=== PATIENT | male | born 1975 | race Caucasian/White ===

== ENCOUNTER 2016-09-15 13:27 | Emergency (ER) | payer OTHER ==
[~2016-09-15] VITALS: Ht 167.6 cm; Wt 82.0 kg
[2016-09-15 13:32] VITALS: Ht 167.6 cm; Wt 82.0 kg
[2016-09-15] MEDS ORDERED: SOD CHLORIDE 0.9% 1,000 ML IV STA (14:03)
[2016-09-15] MEDS ORDERED: ONDANSETRON 4 MG INJ IV STA (14:03)
[2016-09-15] MEDS ORDERED: DICYCLOMINE 10 MG CAP PO ONE (14:30)
[2016-09-15 14:49] LABS: ADD SCAN DIFF NO
--- NOTE | 2016-09-15 14:51 | RADRPT ---
PROCEDURE: US Abdomen. CLINICAL INDICATION: abdominal pain TECHNIQUE: Multiple real-time images were acquired of the patient's abdomen utilizing a high reso lution transducer. COMPARISON: None FINDINGS: The liver demonstrates normal echogenicity and size and no focal lesions are seen. No gallstones ar e identified within the gallbladder. There is no pericholecystic fluid or gallbladder wall thickeni ng. No intra or extrahepatic biliary dilatation is seen. The common bile duct measures 4 mm in max imal dimension. The pancreas is obscured. No free fluid is identified. The right kidney measures 11 cm without hydronephrosis. Visualized portion of the aorta and IVC are unremarkable. IMPRESSION: Unremarkable abdominal ultrasound. RPTAT: AA .Black Perrin MD, Date Time Electronically viewed and signed by .Black Perrin MD, MD on 09/15/2016 14:51 .Petrona/
[2016-09-15 14:53] LABS: ADD UMIC YES; URINE BILIRUBIN (Dip) NEGATIVE (NEGATIVE); URINE BLOOD (Dip) TRACE (NEGATIVE); URINE COLOR YELLOW (YELLOW); URINE GLUCOSE (Dip) NEGATIVE (NEGATIVE); URINE KETONES (Dip) NEGATIVE (NEGATIVE); URINE LEUKOCYTE ESTERASE (Dip) NEGATIVE (NEGATIVE); URINE NITRITE (Dip) NEGATIVE (NEGATIVE); URINE TOTAL PROTEIN (Dip) NEGATIVE (NEGATIVE); URINE UROBILINOGEN (Dip) 0.2 E.U./dL (0.1-1.0)
[2016-09-15 15:08] LABS: HEMATOCRIT 42.9 % (42.0-52.0); HEMOGLOBIN 14.3 g/dl (14.0-18.0); MEAN CORPUSCULAR HEMOGLOBIN 28.4 pg (29.0-33.0); MEAN CORPUSCULAR HGB CONC 33.3 g/dl (32.0-37.0); MEAN CORPUSCULAR VOLUME 85.3 fl (82.0-101.0); MEAN PLATELET VOLUME 11.3 fl (7.4-10.4); PLATELET COUNT 153 10^3/UL (140-415); RED BLOOD COUNT 5.03 10^6/ul (4.70-6.10); RED CELL DISTRIBUTION WIDTH 13.1 % (11.5-14.5); WHITE BLOOD COUNT 3.7 10^3/ul (4.8-10.8)
[2016-09-15 15:38] LABS: ALBUMIN 4.2 g/dl (3.3-4.9)
[2016-09-15 15:39] LABS: POTASSIUM 3.6 mmol/L (3.5-5.1)
[2016-09-15 15:41] LABS: ALBUMIN/GLOBULIN RATIO 1.31; BILIRUBIN,INDIRECT 0.8 mg/dl (0-1.1); BILIRUBIN,TOTAL 0.8 mg/dl (0.2-1.3); CREATININE 0.88 mg/dl (0.61-1.24); TOTAL PROTEIN 7.4 g/dl (6.1-8.1)
[2016-09-15 15:42] LABS: CALCIUM 10.8 mg/dl (8.4-10.2)
[2016-09-15 15:49] LABS: BACTERIA,URINE FEW; MUCUS,URINE FEW; URINE RBCS 0-2 /HPF (0)
[2016-09-15 16:04] LABS: EOSINOPHILS # 0.1 10^3/ul (0.0-0.5); LYMPHOCYTES # 1.1 10^3/ul (0.8-2.9); MONOCYTE # 0.6 10^3/ul (0.3-0.9); NEUTROPHIL # 1.6 10^3/ul (1.6-7.5)
[2016-09-15] MEDS ORDERED: ACET500C5 PO (17:04)
--- NOTE | 2016-09-15 17:20 | ERD ---
ER Documentation Chief Complaint Date/Time DATE: 09/15/16 TIME: 17:16 Chief Complaint diarrhea for past 4 days, my son and had same symptoms went away HPI 41-year-old male patient with no significant past medical history presents to the ED complaining of 9-10 episodes of nonmucoid not on bloody diarrhea that started 5 days ago. Reports that her son and also has similar symptoms however it resolved in 1 day. States that he has focal right upper quadrant abdominal pain that is constant without the diarrhea. Describes the pain as aching and rates it a 4 out of 10. States that he is concerned about his liver and kidneys. Denies any chest pain, cough, fever, chills, nausea, vomiting. ROS All systems reviewed and are negative except as per history of present illness. Medications Home Meds Active Scripts Acetaminophen* (Tylophen*) 500 Mg Capsule, 1 CAP PO Q6H Y for PAIN AND OR ELEVATED TEMP, #20 CAP Prov:PITER MOORE PA-C 09/15/16 Allergies Allergies: Coded Allergies: No Known Allergy (Unverified , 09/15/16) PMhx/Soc Hx Alcohol Use: No Hx Substance Use: No Hx Tobacco Use: No Smoking Status: Never smoker Physical Exam Vitals Vital Signs Date Time Temp Pulse Resp B/P Pulse Ox O2 Delivery O2 Flow Rate FiO2 09/15/16 13:32 97.9 72 18 137/91 97 Physical Exam Const: [id number], well-nourished. In no acute distress. Head: Atraumatic, normocephalic Eyes: Normal Conjunctiva without injection. No purulent discharge. ENT: Normal external ear, nose. Moist oropharynx without tonsillar exudates. Non -erythematous pharynx. Uvula midline. No drooling. No trismus. Neck: No cervical midline tenderness. Full range of motion. No meningismus. No cervical lymphadenopathy. No JVD. Resp: Clear to auscultation bilaterally. No wheezing, rhonchi, rales, or crackles. No accessory muscle use. No retractions. Cardio: Regular rate and rhythm. No murmurs, rubs or gallops. Abd: Soft, right upper quadrant tenderness, non distended. Normal bowel sounds. No palpable masses. No rebound tenderness. No guarding. Negative McBurney' s point. Negative psoas sign. Negative obturator sign. Skin: No petechiae or rashes Back: No midline tenderness. No CVA tenderness. Ext: No cyanosis, or edema. Neur: Awake and alert. Normal gait. Normal coordination. Psych: Normal Mood and Affect Result Diagram: 09/15/16 1410 09/15/16 1410 Results 24 hrs Laboratory Tests Test 09/15/16 14:10 White Blood Count 3.710^3/ul Red Blood Count 5.0310^6/ul Hemoglobin 14.3g/dl Hematocrit 42.9% Mean Corpuscular Volume 85.3fl Mean Corpuscular Hemoglobin 28.4pg Mean Corpuscular Hemoglobin Concent 33.3g/dl Red Cell Distribution Width 13.1% Platelet Count 90737^3/UL Mean Platelet Volume 11.3fl Neutrophils % 44.0% Band Neutrophils % 4.0% Lymphocytes % 30.0% Reactive Lymphocytes % 2.0% Monocytes % 16.0% Eosinophils % 4.0% Neutrophils # 1.610^3/ul Lymphocytes # 1.110^3/ul Monocytes # 0.610^3/ul Eosinophils # 0.110^3/ul Urine Color YELLOW Urine Clarity CLEAR Urine pH 5.5 Urine Specific [place] >=1.030 Urine Ketones NEGATIVE Urine Nitrite NEGATIVE Urine Bilirubin NEGATIVE Urine Urobilinogen 0.2 E.U./dL Urine Leukocyte Esterase NEGATIVE Urine Microscopic RBC 0-2/HPF Urine Microscopic WBC NONE SEEN/HPF Urine Calcium Oxalate Crystals MANY Urine Bacteria FEW Urine Mucus FEW Urine Hemoglobin TRACE Urine Glucose NEGATIVE% Urine Total Protein NEGATIVE Sodium Level 143mmol/L Potassium Level 3.6mmol/L Chloride Level 103mmol/L Carbon Dioxide Level 27mmol/L Anion Gap 17 Blood Urea Nitrogen 9mg/dl Creatinine 0.88mg/dl Glucose Level 63mg/dl Calcium Level 10.8mg/dl Total Bilirubin 0.8mg/dl Direct Bilirubin 0.00mg/dl Indirect Bilirubin 0.8mg/dl Aspartate Amino Transf (AST/SGOT) 24IU/L Alanine Aminotransferase (ALT/SGPT) 33IU/L Alkaline Phosphatase 59IU/L Total Protein 7.4g/dl Albumin 4.2g/dl Globulin 3.20g/dl Albumin/Globulin Ratio 1.31 Lipase 105U/L Current Medications Medications (Trade) Dose Ordered Sig/Luis M Route PRN Reason Start Time Stop Time Status Last Admin Dose Admin Sodium Chloride (NS) 1,000 ml @ 1,000 mls/hr Q1H STAT IV 09/15/16 14:03 09/15/16 15:02 DC 09/15/16 14:22 Ondansetron HCl (Zofran Inj) 4 mg ONCE STAT IV 09/15/16 14:03 09/15/16 14:05 DC 09/15/16 14:22 Dicyclomine HCl (Bentyl) 10 mg ONCE ONCE PO 09/15/16 14:30 09/15/16 14:31 DC 09/15/16 14:22 Procedures/MDM 41-year-old male patient with no significant past medical history presents to the ED complaining of diarrhea for the last 5 days as well as right upper quadrant abdominal pain. Patient is afebrile and nontoxic-appearing. Patient has normal vital signs. Patient was further worked up with CBC, CMP, lipase, UA , gallbladder ultrasound. Patient's pain and symptoms have improved after treatment with 1 L of normal saline, 4 mg IV Zofran, Bentyl. CBC: No leukocytosis. No e/o of systemic infection. No e/o anemia. CMP: No e/o severe acidosis, alkalosis, renal failure, diabetic ketoacidosis, liver disease, Glucose 63. Patient noted to be eating here in the ED. Lipase within normal limits. Urine: No leukocyte esterase, no nitrites, no hematuria. PROCEDURE: US Abdomen. CLINICAL INDICATION: abdominal pain TECHNIQUE: Multiple real-time images were acquired of the patient's abdomen utilizing a high resolution transducer. COMPARISON: None FINDINGS: The liver demonstrates normal echogenicity and size and no focal lesions are seen. No gallstones are identified within the gallbladder. There is no pericholecystic fluid or gallbladder wall thickening. No intra or extrahepatic biliary dilatation is seen. The common bile duct measures 4 mm in maximal dimension. The pancreas is obscured. No free fluid is identified. The right kidney measures 11 cm without hydronephrosis. Visualized portion of the aorta and IVC are unremarkable. IMPRESSION: Unremarkable abdominal ultrasound. Patient's symptoms are likely due to viral etiology. A differential diagnosis considered includes but is not limited to gastritis, GERD, peptic ulcer disease , cholecystitis, choledocholithiasis, cholangitis, pancreatitis, appendicitis, bowel obstruction, ileus, volvulus, nephrolithiasis, pyelonephritis, hepatitis, perforated viscus, diverticulitis, abdominal hernia, acute abdomen, mesenteric ischemia or other emergent conditions. Discharge medications: Tylenol Follow up with primary care physician in 1-2 days for referral to yarn conditioner. Instructed patient to return to the ED sooner for any worsening symptoms. Patient's questions were answered. Patient understood and agreed with discharge plan. Patient discharged stable. Departure Diagnosis: Primary Impression: Abdominal pain Abdominal location: right upper quadrant Qualified Code: R10.11 - Right upper quadrant abdominal pain Additional Impression: Diarrhea Diarrhea type: unspecified type Qualified Code: R19.7 - Diarrhea, unspecified type Condition: Stable Patient Instructions: Abdominal Pain, Diet, Vomiting Or Diarrhea [6Yr-Adult] Referrals: [facility] YOU HAVE RECEIVED A MEDICAL SCREENING EXAM AND THE RESULTS INDICATE THAT YOU DO NOT HAVE A CONDITION THAT REQUIRES URGENT TREATMENT IN THE EMERGENCY DEPARTMENT. FURTHER EVALUATION AND TREATMENT OF YOUR CONDITION CAN WAIT UNTIL YOU ARE SEEN IN YOUR DOCTORS OFFICE WITHIN THE NEXT 1-2 DAYS. IT IS YOUR RESPONSIBILITY TO MAKE AN APPOINTMENT FOR FOLOW-UP CARE. IF YOU HAVE A PRIMARY DOCTOR --you should call your primary doctor and schedule an appointment IF YOU DO NOT HAVE A PRIMARY DOCTOR YOU CAN CALL OUR PHYSICIAN REFERRAL HOTLINE AT IF YOU CAN NOT AFFORD TO SEE A PHYSICIAN YOU CAN CHOSE FROM THE FOLLOWING [facility] [address] [facility]. [facility] [address] [facility]. [facility] [address] [facility]. [facility] [address] [facility] [address] [facility]. [facility]. [address] [facility]. [facility] YOU HAVE RECEIVED A MEDICAL SCREENING EXAM AND THE RESULTS INDICATE THAT YOU DO NOT HAVE A CONDITION THAT REQUIRES URGENT TREATMENT IN THE EMERGENCY DEPARTMENT. FURTHER EVALUATION AND TREATMENT OF YOUR CONDITION CAN WAIT UNTIL YOU ARE SEEN IN YOUR DOCTORS OFFICE WITHIN THE NEXT 1-2 DAYS. IT IS YOUR RESPONSIBILITY TO MAKE AN APPOINTMENT FOR FOLOW-UP CARE. IF YOU HAVE A PRIMARY DOCTOR --you should call your primary doctor and schedule and appointment IF YOU DO NOT HAVE A PRIMARY DOCTOR YOU CAN CALL OUR PHYSICIAN REFERRAL HOTLINE AT . IF YOU CAN NOT AFFORD TO SEE A PHYSICIAN YOU CAN CHOSE FROM THE FOLLOWING [facility] INSTITUTIONS: [facility] [address] [place] [address] [facility] [address] [place] [address] [facility] [address] [place] [address] [facility] Additional Instructions: Call your primary care doctor TOMORROW for an appointment during the next 2-3 days.See the doctor sooner or return here if your condition worsens before your appointment time. PITER MOORE PA-C September 15, 2016 17:20
[2016-09-23] MEDS ORDERED: LORA-441 PO (00:22)
== END 2016-09-15 17:26 | disposition home or self-care (01) ==
LOC: FTE 13:27
DX: R10.11 Right upper quadrant pain (principal)
CPT/HCPCS: 76705; 80053; 81001; 83690; 85025; J2405; J7030; Z7610; 36415; 81003; 96374

== ENCOUNTER 2017-04-16 06:17 | Emergency (ER) | payer OTHER ==
[~2017-04-16] VITALS: Ht 167.6 cm; Wt 85.9 kg
[~2017-04-16 06:17] MED LIST: ACET500C5 PO; LORA-441 PO
[2017-04-16 06:22] VITALS: Ht 167.6 cm; Wt 85.9 kg
[2017-04-16] MEDS ORDERED: CYCLOBENZAPRINE 10 MG TAB PO ONE (07:00)
[2017-04-16] MEDS ORDERED: IBUPROFEN 800 MG TAB PO ONE (07:00)
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
[2017-04-16] MEDS ORDERED: CYCL-319 PO (08:07)
[2017-04-16] MEDS ORDERED: IBUP800T25 PO (08:07)
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
== END 2017-04-16 08:50 | disposition home or self-care (01) ==
LOC: FTE 06:17
DX: S06.0X0A Concussion without loss of consciousness, initial encounter (principal); S90.512A Abrasion, left ankle, initial encounter; V49.40XA Driver injured in collision with unspecified motor vehicles in traffic accident, initial encounter
CPT/HCPCS: 70450; 73610; Z7502; Z7610